=== PATIENT | female | born 1980 | race Caucasian/White ===

== ENCOUNTER 2023-08-06 01:16 | Emergency (ER) | payer MEDICAID, OTHER ==
[~2023-08-06] VITALS: Ht 170.2 cm; Wt 63.4 kg
[2023-08-06] MEDS ORDERED: HYDR-4902 PO (02:14)
[2023-08-06] MEDS ORDERED: CLIN300C70 PO (02:14)
[2023-08-06] MEDS ORDERED: KETOROLAC TROMETH 60MG/2ML VIAL IM ONE (02:15)
[2023-08-06] MEDS ORDERED: LIDOCAINE VISCOUS 2% 15ML UD MT ONE (02:15)
[2023-08-06 03:49] VITALS: BP 144/89; PULSE 66; RESP 16; TEMP 98; O2SAT 97
== END 2023-08-06 04:24 | disposition home or self-care (01) ==
LOC: ER 01:16
DX: K04.7 Periapical abscess without sinus (principal); K02.9 Dental caries, unspecified; F17.210 Nicotine dependence, cigarettes, uncomplicated; F12.10 Cannabis abuse, uncomplicated
CPT/HCPCS: 96372; 99283; J1885